=== PATIENT | male | born 2000 | race Two or more races ===

== ENCOUNTER → 2021-03-13 | Outpatient (CLI) | payer BC ==
--- NOTE | 2021-03-13 14:41 | REP ---
INDICATION: SHOULDER INSTABILITY, HIP INJ. COMPARISON: None. TECHNIQUE: Four views each shoulder FINDINGS: The acromioclavicular there is no acute fracture, dislocation, or subluxation. And glenohumeral relationships are within normal limits bilaterally. IMPRESSION: No acute abnormality seen on either side. <Electronically signed by Rufino Byrnes > 03/13/21 [id number]
--- NOTE | 2021-03-13 14:57 | REP ---
INDICATION: SHOULDER INSTABILITY, HIP INJ. COMPARISON: None. TECHNIQUE: AP pelvis two views each hip FINDINGS: The femoral heads are spherical in shape and symmetric in appearance. There is no fracture, dislocation, or subluxation. There is no buttressing. There is no destructive osseous lesion. IMPRESSION: Within normal limits bilaterally. <Electronically signed by Rufino Byrnes > 03/13/21 2007
== END ==
LOC: M SOG 11:58
PROVIDERS: ATTEND Orthopaedic Surgery Sports Medicine
DX: M25.311 Other instability, right shoulder (principal); M25.312 Other instability, left shoulder; S76.211A Strain of adductor muscle, fascia and tendon of right thigh, initial encounter; S76.202A Unspecified injury of adductor muscle, fascia and tendon of left thigh, initial encounter; W18.30XA Fall on same level, unspecified, initial encounter; Y92.009 Unspecified place in unspecified non-institutional (private) residence as the place of occurrence of the external cause

== ENCOUNTER → 2022-04-24 | Outpatient (CLI) | payer BC | LOC: M WUC 09:32 | PROVIDERS: ATTEND Internal Medicine | DX: M25.531 Pain in right wrist (principal); M25.071 Hemarthrosis, right ankle ==

== ENCOUNTER → 2022-05-08 | Outpatient (CLI) | payer BC | LOC: M WUC 15:52 | PROVIDERS: ATTEND Physician Assistant Medical | DX: M25.561 Pain in right knee (principal); M25.562 Pain in left knee ==